=== PATIENT | female | born 1995 | race Caucasian/White ===

== ENCOUNTER → 2018-07-03 | Outpatient (CLI) | payer BC, OTHER ==
--- NOTE | 2018-07-03 14:57 | XR ---
EXAMINATION TYPE: XR abdomen 2V DATE OF EXAM: 07/03/2018 CLINICAL HISTORY: Generalized abdominal pain and constipation for 2 to 3 days. TECHNIQUE: Supine, upright, and left side down lateral decubitus views of the abdomen are obtained. COMPARISON: None. FINDINGS: Scattered gas is seen in non-distended stomach and small bowel loops. Gas and fecal mater ial is seen in non-distended colon. There is no visceromegaly, pneumoperitoneum, or abnormal calcif ication appreciated. The lung bases are clear and the osseous structures are intact. IMPRESSION: Overall nonobstructive bowel gas pattern.
== END | disposition home or self-care (01) ==
LOC: RADXRYALE 13:59
PROVIDERS: ATTEND Physician Assistant Medical
DX: R10.817 Generalized abdominal tenderness (principal)
CPT/HCPCS: 74019

== ENCOUNTER → 2019-12-31 | Outpatient (CLI) | payer BC, OTHER ==
--- NOTE | 2019-12-31 20:43 | US ---
EXAMINATION TYPE: US pelvic complete DATE OF EXAM: 12/31/2019 COMPARISON: NONE CLINICAL HISTORY: E28.2 Polycystic ovarian syndrome. irregular menses TECHNIQUE: Transabdominal (TA). Date of LMP: July 2019 EXAM MEASUREMENTS: Uterus: 6.0 x 2.0 x 3.0 cm Endometrial Stripe: 0.4 cm Right Ovary: 3.5 x 1.8 x 1.9 cm Left Ovary: 2.2 x 1.8 x 1.9 cm 1. Uterus: Anteverted 2. Endometrium: appears wnl 3. Right Ovary: follicles noted 4. Left Ovary: follicles noted 5. Bilateral Adnexa: wnl 6. Posterior cul-de-sac: wnl Urinary bladder is sonolucent. Posterior wall is normal. IMPRESSION: 1. Normal pelvic ultrasound
== END | disposition home or self-care (01) ==
LOC: RADUSWWP 16:00
PROVIDERS: ATTEND Family Medicine
DX: E28.2 Polycystic ovarian syndrome (principal)
CPT/HCPCS: 76856